=== PATIENT | male | born 1935 | race Caucasian/White ===

== ENCOUNTER 2018-02-20 10:28 | Inpatient (IN) | payer OTHER ==
[~2018-02-20] VITALS: Ht 170.2 cm; Wt 70.5 kg
[2018-02-20] MEDS ORDERED: SODIUM CHLORIDE 0.9% 1,000 ML IV ONE (11:11)
[2018-02-20 11:32] LABS: Hematocrit 38.3 % (41.0-53.0); Hemoglobin 12.6 g/dL (13.5-17.5); Mean Corpuscular Hemoglobin 31.1 pg (28.0-32.0); Mean Corpuscular Hgb Conc. 32.9 g/dL (32.0-36.0); Mean Corpuscular Volume 94.4 fL (80.0-100.0); Platelet Count (auto) 196 10^3/uL (140-450); Red Blood Cells 4.06 10^6/uL (4.5-5.90); Red Cell Distribution Width 13.1 % (11.8-14.3); White Blood Cell 9.4 10^3/uL (4.4-10.8)
[2018-02-20 11:52] LABS: Band Neutrophils % (manual) 0; Basophils % (manual) 0 (0.0-2.0); Blast Cells 0; Metamyelocytes % 0; Myelocytes % 0; Promyelocytes % 0
[2018-02-20 12:00] LABS: Alanine Aminotransferase 18 U/L (16-61); Albumin 2.8 g/dL (3.4-5.0); Alkaline Phosphatase 71 U/L (45-117); Anion Gap 7 (5-15); Aspartate Aminotransferase 13 U/L (15-37); Bilirubin, Total 0.3 mg/dL (0.2-1.0); Blood Urea Nitrogen 12 mg/dL (7-18); Calcium 8.8 mg/dL (8.5-10.1); Carbon Dioxide 27 mmol/L (21-32); Chloride 104 mmol/L (98-107); GFR African American 102 mL/min; GFR Non-African American 84 mL/min; Glucose 114 mg/dL (74-106); Magnesium 2.4 mg/dL (1.6-2.6); Potassium 3.9 mmol/L (3.5-5.1); Sodium 138 mmol/L (136-145); Total Protein 7.1 g/dL (6.4-8.2)
[2018-02-20] MEDS ORDERED: IOHEXOL 300 MG/ML 100ML BOTTLE IJ ONE (12:42)
[2018-02-20 12:52] LABS: Eosinophils % (manual) 3 (0-7); Lymphocytes % (manual) 48 (10.0-50.0); Monocytes % (manual) 4 (0-12); Reactive Lymphocytes 3
[2018-02-20] MEDS ORDERED: HYDROcodone-ACET 5/325MG TAB PO PRN (14:45)
[2018-02-20] MEDS ORDERED: PROMETHAZINE HCL 25 MG/ML 1ML IV PRN (14:45)
[2018-02-20] MEDS ORDERED: ASPirin 81 mg TAB PO ONE (15:15)
[2018-02-20 15:24] LABS: INR 1.05 (0.9-1.15); Partial Thromboplastin Time 27.7 sec (22.64-33.71); Prothrombin Time 11.4 sec (9.37-12.3)
[2018-02-20 15:26] LABS: Urine Bacteria NONE SEEN /hpf (None Seen); Urine Blood Negative /uL (Negative); Urine Specific Gravity 1.019 (1.001-1.035); Urine WBC <1 /hpf (0 - 3)
[2018-02-20 15:42] VITALS: BP 120/70
[2018-02-20] MEDS ORDERED: TAMSULOSIN HYDROCHLORIDE 0.4 MG CAP PO SCH (18:00)
[2018-02-20] MEDS: IPRATROPIUM BROM 0.5 MG/2.5ML INH SOL NEB SCH (18:10)
[2018-02-20] MEDS: ALBUTEROL SULF 2.5 MG/0.5ML(0.5%) NEB SOLN NEB SCH (18:10)
[2018-02-20 21:20] VITALS: BP 126/87
[2018-02-20 22:00] VITALS: BP 135/69
[2018-02-20] MEDS ORDERED: DONEPEZIL HYDROCHLORIDE 5 MG TAB PO SCH (22:00)
[2018-02-21 05:11] VITALS: BP 132/70
[2018-02-21] MEDS: IPRATROPIUM BROM 0.5 MG/2.5ML INH SOL NEB SCH ×3 (06:35→13:30)
[2018-02-21] MEDS: ALBUTEROL SULF 2.5 MG/0.5ML(0.5%) NEB SOLN NEB SCH ×3 (06:35→13:30)
[2018-02-21] MEDS ORDERED: LEVOTHYROXINE SODIUM 50 MCG TAB PO SCH (07:00)
[2018-02-21 08:19] VITALS: BP 139/62
[2018-02-21] MEDS ORDERED: LIDOCAINE 2% (LOCAL ANESTH.) PF 5ml SDV ONE (08:21)
[2018-02-21] MEDS ORDERED: ASPirin 81 mg TAB PO SCH (10:00)
[2018-02-21 11:55] VITALS: BP 133/67
[2018-02-21 16:22] VITALS: BP 133/67
== END 2018-02-21 17:40 | disposition home health service (06) | DRG 181 ==
LOC: ER 10:28 → OVERFLOW 10:29 → TELE-CENTR 19:52
PROVIDERS: ADMIT Internal Medicine; ATTEND Family Medicine
PROC: 0BBF3ZX Excision of Right Lower Lung Lobe, Percutaneous Approach, Diagnostic (ICD-10-PCS; principal; 2018-02-21)
DX: C34.31 Malignant neoplasm of lower lobe, right bronchus or lung (principal); E44.0 Moderate protein-calorie malnutrition; J90 Pleural effusion, not elsewhere classified; F03.90 Unspecified dementia, unspecified severity, without behavioral disturbance, psychotic disturbance, mood disturbance, and anxiety; J92.9 Pleural plaque without asbestos; E03.9 Hypothyroidism, unspecified; E78.5 Hyperlipidemia, unspecified; E04.1 Nontoxic single thyroid nodule; I10 Essential (primary) hypertension; N40.0 Benign prostatic hyperplasia without lower urinary tract symptoms; Z85.118 Personal history of other malignant neoplasm of bronchus and lung; Z88.0 Allergy status to penicillin; Z79.899 Other long term (current) drug therapy; Z68.24 Body mass index [BMI] 24.0-24.9, adult
CPT/HCPCS: 10022; 36415; 71045; 71260; 74177; 76536; 77012; 80053; 81001; 83735; 83880; 84443; 84484; 85007; 85027; 85610; 85730; 87081; 93005; 94640; 96360; 99291